=== PATIENT | female | born 1955 | race Caucasian/White ===

== ENCOUNTER → 2016-12-18 | Outpatient (CLI) | payer BC | LOC: MC.RAD 16:11 | DX: Z12.31 Encounter for screening mammogram for malignant neoplasm of breast (principal) ==

== ENCOUNTER → 2017-11-22 | Outpatient (CLI) | payer BC | LOC: COL.RAD 12:12 | DX: K76.0 Fatty (change of) liver, not elsewhere classified (principal); K80.20 Calculus of gallbladder without cholecystitis without obstruction ==

== ENCOUNTER → 2018-01-03 | Outpatient (CLI) | payer BC | LOC: MC.RAD 13:35 | DX: Z12.31 Encounter for screening mammogram for malignant neoplasm of breast (principal) ==

== ENCOUNTER → 2019-01-16 | Outpatient (CLI) | payer BC | LOC: MC.RAD 13:55 | DX: Z12.31 Encounter for screening mammogram for malignant neoplasm of breast (principal) ==

== ENCOUNTER → 2019-12-15 | Outpatient (CLI) | payer BC | LOC: ZCOL.LAB 17:26 | DX: Z20.828 Contact with and (suspected) exposure to other viral communicable diseases (principal) ==

== ENCOUNTER → 2019-12-29 | Outpatient (CLI) | payer BC | LOC: MC.RAD 16:45 | DX: Z12.31 Encounter for screening mammogram for malignant neoplasm of breast (principal) ==

== ENCOUNTER → 2020-07-28 | Outpatient (CLI) | payer BC | LOC: COL.RAD 07:53 | DX: K76.0 Fatty (change of) liver, not elsewhere classified (principal); R59.0 Localized enlarged lymph nodes; Z90.710 Acquired absence of both cervix and uterus; Z90.49 Acquired absence of other specified parts of digestive tract | CPT/HCPCS: Q9967 ==

== ENCOUNTER → 2020-09-14 | Outpatient (CLI) | payer BC | LOC: COL.RAD 07:28 | DX: K76.0 Fatty (change of) liver, not elsewhere classified (principal); R59.0 Localized enlarged lymph nodes; Z90.49 Acquired absence of other specified parts of digestive tract | CPT/HCPCS: Q9967 ==

== ENCOUNTER → 2020-12-20 | Outpatient (CLI) | payer BC | LOC: MC.RAD 16:15 | DX: Z12.31 Encounter for screening mammogram for malignant neoplasm of breast (principal) ==

== ENCOUNTER → 2021-07-28 | Outpatient (CLI) | payer BC | LOC: COL.RAD 09:38 | DX: M25.552 Pain in left hip (principal) | CPT/HCPCS: J3301; Q9967 ==

== ENCOUNTER → 2021-12-21 | Outpatient (CLI) | payer MEDICARE | LOC: MC.RAD 10:49 | DX: Z12.31 Encounter for screening mammogram for malignant neoplasm of breast (principal) ==

== ENCOUNTER → 2022-09-25 | Outpatient (CLI) | payer MEDICARE | LOC: COL.PUL 10:46 | DX: R05.3 Chronic cough (principal); R06.09 Other forms of dyspnea ==

== ENCOUNTER 2024-01-27 22:12 | Emergency (ER) | payer MEDICARE ==
[~2024-01-27] VITALS: Ht 167.6 cm; Wt 104.5 kg
[2024-01-27 22:43] VITALS: TEMP 97.9
[2024-01-28 00:15] LABS: BASO # 0.1 K/mm3 (0.0-0.2); BASO % 0.4 % (0.0-2.0); EOS # 0.1 K/mm3 (0.0-0.7); EOS % 0.4 % (0.0-4.0); GRAN # 11.6 K/mm3 (1.4-6.5); GRAN % 68.3 % (42.2-75.2); HEMATOCRIT 42.4 % (37.0-47.0); HEMOGLOBIN 13.6 g/dl (12.5-16.0); LYMPH # 3.7 K/mm3 (1.2-3.4); LYMPH % 22.1 % (20.0-51.0); MEAN CELL VOLUME 91 fl (80.0-100.0); MEAN CORPUSCULAR HEMOGLOBIN 29 pg (27-31); MEAN CORPUSCULAR HGB CONC 32 g/dl (33.0-37.0); MEAN PLATELET VOLUME 11.1 fl (7.4-10.4); MONO # 1.4 K/mm3 (0.1-0.6); MONO % 8.2 % (1.7-9.3); PLATELET COUNT 257 K/mm3 (130-400); RED BLOOD COUNT 4.68 M/mm3 (4.10-5.30); REDCELL DISTRIBUTION WIDTH-CV 15.6 % (11.5-14.5)
[2024-01-28] MEDS ORDERED: Morphine 4 MG/ML VIAL IV ONE (00:15)
[2024-01-28] MEDS ORDERED: Ondansetron 4 MG/2 ML VIAL IV ONE (00:15)
[2024-01-28 00:31] LABS: ALBUMIN 3.7 g/dL (3.4-4.8); BILIRUBIN,TOTAL 0.4 mg/dL (0.2-1.2); CALCIUM 9.9 mg/dL (8.4-10.2); CREATININE, serum 0.88 mg/dL (0.57-1.11); POTASSIUM 3.7 mEq/L (3.5-4.5); TOTAL PROTEIN 7.4 g/dl (6.2-8.1)
[2024-01-28] MEDS ORDERED: Iohexol 300 - 100 ML VIAL IV ONE (01:13)
[2024-01-28] MEDS ORDERED: NS 50 ML IV SCH (01:13)
[2024-01-28 01:45] LABS: PH 6.5 (5.0-8.5); URINE APPEARANCE CLEAR (CLEAR/HAZY); URINE BLOOD NEGATIVE (NEGATIVE); URINE COLOR YELLOW (YELLOW); URINE GLUCOSE NEGATIVE (NEGATIVE); URINE KETONE NEGATIVE (NEGATIVE); URINE NITRATE NEGATIVE (NEGATIVE); URINE PROTEIN(semi-quant) NEGATIVE (NEGATIVE); URINE UROBILINOGEN 0.2 E.U/dL (0.2-1.0)
[2024-01-28 01:51] LABS: COLLECTION METHOD CLEAN CATCH
[2024-01-28] MEDS ORDERED: FLEXERIL 1010 MG/TAB PO (02:19)
[2024-01-28 02:41] VITALS: BP 142/82; PULSE 88
== END 2024-01-28 02:41 | disposition home or self-care (01) ==
LOC: COL.ER 22:12
PROVIDERS: Emergency Medicine
DX: M54.50 Low back pain, unspecified (principal)
CPT/HCPCS: J2270; J2405; Q9967

== ENCOUNTER → 2024-02-06 | Outpatient (CLI) | payer MEDICARE ==
[~2024-02-06] MED LIST: FLEXERIL 1010 MG/TAB PO
== END ==
LOC: MC.RAD 10:32
DX: Z12.31 Encounter for screening mammogram for malignant neoplasm of breast (principal)